=== PATIENT | male | born 1935 | race Caucasian/White ===

== ENCOUNTER 2017-07-11 12:07 | Emergency (ER) | payer OTHER, MEDICARE ==
[~2017-07-11] VITALS: Ht 177.8 cm; Wt 99.8 kg
--- NOTE | 2017-07-11 12:54 | ED GENERAL ADULT ---
History of Present Illness General Chief Complaint: General Adult Stated Complaint: DIAHRREA Source: patient Exam Limitations: no limitations Vital Signs & Intake/Output Vital Signs & Intake/Output Vital Signs Date Time Temp Pulse Resp B/P B/P Pulse O2 O2 Flow FiO2 Mean Ox Delivery Rate 07/11 1343 Room Air 07/11 1219 97.0 79 20 123/73 96 Room Air Allergies Coded Allergies: NO KNOWN ALLERGIES (06/24/10) NKA PER ANTIBIOTIC SHEET ON 06/24/10 -SSJ Reconcile Medications Lisinopril 5 MG TABLET 1 TAB PO DAILY HEART (Reported) Mexiletine HCl 150 MG CAPSULE 1 CAP PO TID GI (Reported) Oxybutynin Chloride (Oxybutynin Chloride ER) 5 MG TAB.ER.24 1 TAB PO DAILY BLADDER (Reported) Simvastatin (Simvastatin*) 20 MG TABLET 1 TAB PO QPM CHOLESTEROL (Reported) Sotalol HCl (Sotalol) 120 MG TABLET 1 TAB PO BID HEART (Reported) Tamsulosin HCl 0.4 MG CAP.ER.24H 1 CAP PO QPM BLADDER (Reported) Warfarin Sodium 1 MG TABLET 3 TAB PO 1700 BLOOD THINNER (Reported) Triage Note: PT TO ED C/O DIARRHEA SINCE 0200 THIS AM. STATES NONSTOP SINCE THEN. STATES HE HAD C/P YESTERDAY, NONE NOW. EKG DONE. DENIES N/V. Triage Nurses Notes Reviewed? yes HPI: Patient is an 81-year-old male with past medical history as outlined below who presents today with his and daughter for diarrhea. He reports that the diarrhea has been persistent and was acute in onset since the early hours of this morning. He reports that it is "dark" but does not look like enoc blood. He denies any known history of peptic ulcer disease or GI bleeding. He is scheduled to be seen tomorrow for preoperative workup at the [facility] for special surgery in [facility] for a planned procedure for cervical stenosis. His primary physician sent him in for evaluation in the hopes that he can still undergo this workup. He has no history of C. difficile, and has not had a recent antibiotic course. No contacts at home are expressing similar GI distress. Past History Travel History Traveled to [place] past 21 day No Medical History Any Pertinent Medical History? see below for history Cardiovascular: AFIB, hypertension Cancer(s): prostate cancer Pneumonia Vaccine: 11/07/05 Surgical History Surgical History: non-contributory Psychosocial History Who do you live with Spouse Services at Home None What is your primary language Mongolian Tobacco Use: Quit >30 days ago ETOH Use: denies use Illicit Drug Use: denies illicit drug use Family History Hx Contributory? No Review of Systems Review of Systems Constitutional: Reports: see HPI, weakness. EENTM: Reports: no symptoms. Respiratory: Reports: no symptoms. Cardiovascular: Reports: no symptoms. GI: Reports: diarrhea. Denies: abdominal pain. Genitourinary: Reports: no symptoms. Musculoskeletal: Reports: no symptoms. Skin: Reports: no symptoms. Neurological/Psychological: Reports: no symptoms. Hematologic/Endocrine: Reports: no symptoms. Immunologic/Allergic: Reports: no symptoms. All Other Systems: Reviewed and Negative Physical Exam Physical Exam General Appearance: well developed/nourished, no apparent distress, alert, awake Comments: HEENT: Inspection of the head reveals a normocephalic cranium with no signs of trauma. Ophtho: Extraocular muscles are intact and pupils are equal and reactive to light bilaterally with no afferent pupillary defect. The sclera are noninjected , and there is no obvious discharge. Neck: The trachea is midline, there is no obvious asymmetry or mass over the thyroid, and there is no midline cervical spine tenderness Respiratory: The lungs are clear and equal to auscultation bilaterally without wheezes, rales, or rhonchi. The patient exhibits no signs of labored breathing. Cardiac: Regular rhythm and non-tachycardic without appreciable murmurs on auscultation. No obvious JVD. GI: Subjective active frequent diarrhea. Examination of the abdomen reveals mild epigastric discomfort on palpation. There is negative Allison's sign, negative McBurney's point tenderness, negative Auburn sign, negative Jackson-Ógmez sign, and no signs of peritonitis whatsoever on percussion or deep palpation. The skin is intact with no sign of trauma or infection. : Deferred Rectal examination: Copious loose stool in the rectal vault. Nonbloody in appearance, but guaiac positive. Neuro: The patient is oriented to person, place, time, and situation, with no obvious focal motor deficits. There were no sensory deficits, and the patient exhibit purposeful movement of all 4 extremities. Cranial nerves II through XII are intact, and gait is normal. Behavioral: Calm and cooperative Dermatologic: Dermatologic examination reveals no diffuse rashes or exanthems, no petechiae, no ecchymoses, and no other signs of erythema or infection. Core Measures ACS in differential dx? No CVA/TIA Diagnosis: No Sepsis Present: No Sepsis Focused Exam Completed? No Progress Differential Diagnoses I considered the following diagnoses in my evaluation of the patient: Electrolyte abnormality, gastroenteritis, Clostridium difficile, GI bleed, anemia Plan of Care: Orders Procedure Date/time Status PROTHROMBIN TIME 07/11 1253 Complete COMPREHENSIVE METABOLIC PANEL 07/11 1253 Complete CBC WITHOUT DIFFERENTIAL 07/11 1253 Complete EKG 07/11 1209 Active Laboratory Tests 07/11/17 1440: Anion Gap 11, Estimated GFR > 60, BUN/Creatinine Ratio 24.0, Glucose 102 H, Calcium 8.5, Total Bilirubin 2.1 H, AST 25, ALT 33, Alkaline Phosphatase 72, Total Protein 6.2 L, Albumin 3.5, Globulin 2.7, Albumin/Globulin Ratio 1.3 07/11/17 1330: PT 32.5 H, INR 2.95 H, CBC w Diff NO MAN DIFF REQ, RBC 5.04, MCV 90.4, MCH 29.8, MCHC 33.0, RDW 15.9 H, MPV 9.1, Gran % 76.4 H, Lymphocytes % 12.3 L, Monocytes % 10.8 H, Eosinophils % 0.2, Basophils % 0.3, Absolute Granulocytes 8.7 H, Absolute Lymphocytes 1.4, Absolute Monocytes 1.2 H, Absolute Eosinophils 0, Absolute Basophils 0 Initial ED EKG: none Comments: Patient presented today for diarrhea 24 hours for a preoperative clearance workup at [facility] for special surgery. Guaiac was positive but laboratory studies were unremarkable including a hemoglobin of 15. I discussed this case with Dr. Hightower from GI and reviewed the patient's prior colonoscopy which showed only polyps. Dr. Hightower felt the patient was safe for discharge home as his mildly positive guaiac may be secondary to his history of radiation proctitis versus effects of a possible gastroenteritis. He did not feel that there was a clinically significant GI hemorrhage. He was satisfied with this plan and was discharged home in stable condition. He has been very weak and has fallen many times recently, however this has been worked up by his primary physician and they are in the process of getting him more assistance; they will talk to his primary again regarding this issue, but they note that the reason for his planned surgery at [facility] on his cervical spine is to hopefully improve his balance and distal neurologic symptoms. They declined my offer for hospitalization for his weakness or case management for acute rehabilitation placement. Departure Departure Time of Disposition: 1550 Disposition: HOME OR SELF CARE Condition: Stable Clinical Impression Primary Impression: Diarrhea Qualifiers: Diarrhea type: presumed infectious Qualified Code: R19.7 - Diarrhea , unspecified Referrals: [place],Abram Gauthier (PCP/Family) Additional Instructions: Please keep your appointment at [facility] tomorrow and then discuss your diarrhea and weakness with your primary physician. Make an appointment for reassessment in their office and as always return to the emergency department for any new or worsening symptoms. Departure Forms: Customer Survey General Discharge Information Critical Care Note Critical Care Note Critical Care Time: non-applicable
[2017-07-11 13:41] LABS: ABSOLUTE BASOPHIL COUNT 0 /CUMM (0.0-0.2); ABSOLUTE EOSINOPHIL COUNT 0 /CUMM (0.0-0.7); ABSOLUTE GRANULOCYTE CT 8.7 /CUMM (1.4-6.5); ABSOLUTE LYMPH COUNT 1.4 /CUMM (1.2-3.4); ABSOLUTE MONOCYTE COUNT 1.2 /CUMM (0.10-0.60); BASOPHIL % 0.3 % (0.0-2.0); EOSINOPHIL % 0.2 % (0-5); GRANULOCYTE % 76.4 % (42.2-75.2); HEMATOCRIT 45.5 % (42-52); MEAN CORPUSCULAR HGB 29.8 PG (27.0-31.0); MEAN CORPUSCULAR VOLUME 90.4 FL (80.0-94.0); MEAN PLATELET VOLUME 9.1 FL (7.4-10.4); PLATELET COUNT 162 /CUMM (130-400); RBC DISTRIBUTION WIDTH 15.9 % (11.5-14.5); RED BLOOD CELL CT 5.04 /CUMM (4.70-6.10); WHITE BLOOD CELL COUNT 11.4 /CUMM (4.8-10.8)
[2017-07-11 13:47] LABS: PT 32.5 SEC (9.4-12.5)
[2017-07-11] MEDS ORDERED: MEXILETINE HCL150 M1 PO (14:19)
[2017-07-11] MEDS ORDERED: SOTALOL120 MG PO (14:19)
[2017-07-11] MEDS ORDERED: WARFARIN SODIUM1 M1 PO (14:19)
[2017-07-11] MEDS ORDERED: TAMSULOSIN HCL0.4 M1 PO (14:20)
[2017-07-11] MEDS ORDERED: LISINOPRIL5 M1 PO (14:20)
[2017-07-11] MEDS ORDERED: OXYBUTYNIN CHLOR5 M3 PO (14:20)
[2017-07-11] MEDS ORDERED: SIMVASTATIN20 M2 PO (14:20)
[2017-07-11 16:07] VITALS: BP 129/70
== END 2017-07-11 16:08 ==
LOC: ERH 12:07
PROVIDERS: Student in an Organized Health Care Education/Training Program
DX: R19.7 Diarrhea, unspecified (principal); I10 Essential (primary) hypertension; I48.91 Unspecified atrial fibrillation; Z87.891 Personal history of nicotine dependence
CPT/HCPCS: 93005; 93010